=== PATIENT | male | born 1980 | race Caucasian/White ===

== ENCOUNTER 2022-10-31 15:00 | Outpatient (RCR) | payer OTHER ==
[~2022-10-31 15:00] MED LIST: ADDERALL10 MG PO; CATAPRES 0.1MG0.1 MG PO; CLARITIN 1010 MG/TAB PO; COLACE 100100 MG/CAP PO; COUMADIN 5MG5 MG/TAB PO; DESYREL 50MG50 MG PO; EFFEXOR 75M75 MG/TAB PO; FLOMAX 0.40.4 MG/CAP PO; LUNESTA2 MG PO; LYRICA 100MG C100 M1 PO; METANX 2.8 MG-21 TA1 PO; MIRALAX PA17 GM/Dose PO; MOBIC 7.5MG7.5 MG; NORCO 325 MG-51 TAB PO; RT ADVAIR 228 DISKUS IH; WELLBUTRIN SR150 M1 PO; ZYPREXA 5MG5 MG PO
== END 2022-11-11 | disposition home or self-care (01) ==
LOC: WSOT
DX: S61.432D Puncture wound without foreign body of left hand, subsequent encounter (principal); X58.XXXD Exposure to other specified factors, subsequent encounter

== ENCOUNTER 2023-10-30 21:27 | Emergency (ER) | payer OTHER ==
[~2023-10-30] VITALS: Ht 182.9 cm; Wt 90.9 kg
[2023-10-30] MEDS ORDERED: Morphine 4 MG/ML VIAL IV ONE (22:15)
[2023-10-30] MEDS ORDERED: Ondansetron 4 MG/2 ML VIAL IV ONE (22:15)
[2023-10-30 22:40] LABS: BASO % 0.4 % (0.0-2.0); EOS % 0.3 % (0.0-4.0); GRAN # 6.8 K/mm3 (1.4-6.5); GRAN % 84.4 % (42.2-75.2); HEMATOCRIT 41.5 % (42.0-52.0); LYMPH # 0.4 K/mm3 (1.2-3.4); LYMPH % 4.5 % (20.0-51.0); MEAN CELL VOLUME 90 fl (80.0-100.0); MEAN CORPUSCULAR HEMOGLOBIN 31 pg (27-31); MEAN CORPUSCULAR HGB CONC 34 g/dl (33.0-37.0); MEAN PLATELET VOLUME 9.5 fl (7.4-10.4); MONO # 0.8 K/mm3 (0.1-0.6); MONO % 10.1 % (1.7-9.3); PLATELET COUNT 147 K/mm3 (130-400); RED BLOOD COUNT 4.59 M/mm3 (4.20-5.60)
[2023-10-30 22:58] LABS: ALBUMIN 3.1 gm/dL (3.5-5.0); BILIRUBIN,TOTAL 0.5 mg/dL (0.2-1.2); C-REACTIVE PROTEIN 11.67 mg/dL (0.00-0.50); CALCIUM 8.8 mg/dL (8.4-10.2); CREATININE, serum 1.36 mg/dL (0.72-1.25); TOTAL PROTEIN 6.1 gm/dL (6.2-8.1)
[2023-10-30 22:59] VITALS: TEMP 98.3
[2023-10-31] MEDS ORDERED: Morphine 4 MG/ML VIAL IV ONE (00:15)
[2023-10-31] MEDS ORDERED: NEURONTIN300 MG/CAP PO (00:23)
[2023-10-31] MEDS ORDERED: ROXICODONE 55 MG/TAB PO (00:24)
[2023-10-31] MEDS ORDERED: NAPROSYN500 MG PO (00:24)
[2023-10-31] MEDS ORDERED: ZOFRAN ODT4 MG PO (00:25)
[2023-10-31] MEDS ORDERED: Gabapentin 300 MG CAP PO ONE (00:30)
[2023-10-31] MEDS ORDERED: Ketorolac 15 MG/ML VIAL IV ONE (00:30)
[2023-10-31 00:39] VITALS: BP 92/58; PULSE 81
== END 2023-10-31 00:42 | disposition home or self-care (01) ==
LOC: COL.ER 21:27
PROVIDERS: Emergency Medicine
DX: M54.17 Radiculopathy, lumbosacral region (principal); Z86.718 Personal history of other venous thrombosis and embolism; Z79.01 Long term (current) use of anticoagulants
CPT/HCPCS: J1885; J2270; J2405